=== PATIENT | female | born 1995 | race African-American/Black ===

== ENCOUNTER 2017-01-14 13:32 | Emergency (ER) | payer BC ==
[~2017-01-14] VITALS: Ht 167.6 cm; Wt 52.9 kg
[~2017-01-14 13:32] MED LIST: AMOXICILLIN500 M1 PO; NAPROSYN500 MG PO; NOHOMEMEDS; PERCOCET 5/31 TABLET PO; TESSALON PERLE100 MG PO; TORADOL10 MG PO; VALIUM5 MG PO; ZOFRAN4 MG PO
[2017-01-14 14:37] LABS: MCH 27.9 PG (29.0-34.0); MCHC 35.1 G/DL (30.0-36.0); MCV 79.4 FL (83-99); PLATELET COUNT 199 K/uL (156-360); RBC DIS.WIDTH-CV 13.4 % (11.8-14.6); RBC DIS.WIDTH-SD 37.9 % (39-53); RED BLOOD COUNT 4.91 M/uL (3.80-5.20); WHITE BLOOD COUNT 5.2 K/uL (4.1-10.2)
[2017-01-14 14:52] LABS: CHLORIDE 105 mEq/L (99-109); POTASSIUM 3.8 mEq/L (3.7-5.4); SODIUM 136 mEq/L (136-147)
[2017-01-14 14:54] LABS: GLUCOSE 94 mg/dL (70-99)
[2017-01-14 14:56] LABS: ANION GAP 8 MEQ/L (2-14)
[2017-01-14 14:58] LABS: GFR ESTIMATE (CALCULATED) > 59 mL/min/
[2017-01-14 14:59] LABS: UREA NITROGEN (BUN) 8 mg/dL (9-23)
[2017-01-14 15:06] LABS: QUANTITATIVE HCG < 4.0 MIU/ML
[2017-01-14 15:23] LABS: TOTAL BILIRUBIN 0.8 mg/dL (0.0-1.0)
[2017-01-14 15:24] LABS: ALKALINE PHOSPHATASE 53 IU/L (3-129)
[2017-01-14 15:26] LABS: DIRECT BILIRUBIN 0.3 mg/dL (0.0-0.3)
[2017-01-14 15:27] LABS: LIPASE 16 U/L (1.0-51.0)
[2017-01-14 16:18] LABS: INFLUENZA A VIRAL ANTIGEN POSITIVE; INFLUENZA B VIRAL ANTIGEN NEGATIVE
[2017-01-14] MEDS ORDERED: TAMIFLU75 MG PO (16:29)
[2017-01-14] MEDS ORDERED: MOTRIN600 MG PO (16:29)
[2017-01-14 16:56] VITALS: BP 114/55
== END 2017-01-14 16:57 | disposition home or self-care (01) ==
LOC: EME 13:32
PROVIDERS: Physician Assistant
DX: J10.1 Influenza due to other identified influenza virus with other respiratory manifestations (principal)
CPT/HCPCS: 71020; 80048; 80076; 83690; 84702; 85027; 87502; 99281; 99284

== ENCOUNTER 2018-03-31 17:35 | Emergency (ER) | payer BC ==
[~2018-03-31] VITALS: Ht 167.6 cm; Wt 51.9 kg
[~2018-03-31 17:35] MED LIST changes: +MOTRIN600 MG PO; +TAMIFLU75 MG PO
[2018-03-31 18:13] LABS: HEMATOCRIT 39.8 % (36.0-46.0); HEMOGLOBIN 13.5 G/DL (11.9-15.5); MCH 28.4 PG (29.0-34.0); MCHC 33.9 G/DL (30.0-36.0); MCV 83.6 FL (83-99); PLATELET COUNT 266 K/uL (156-360); RBC DIS.WIDTH-CV 12.8 % (11.8-14.6); RBC DIS.WIDTH-SD 39.2 % (39-53); RED BLOOD COUNT 4.76 M/uL (3.80-5.20); WHITE BLOOD COUNT 7.1 K/uL (4.1-10.2)
[2018-03-31 18:29] LABS: CHLORIDE 102 mEq/L (99-109); POTASSIUM 4.6 mEq/L (3.7-5.4); SODIUM 138 mEq/L (136-147)
[2018-03-31 18:31] LABS: GLUCOSE 101 mg/dL (70-99)
[2018-03-31 18:35] LABS: CREATININE 0.9 mg/dL (0.6-1.3); GFR ESTIMATE (CALCULATED) > 59 mL/min/
[2018-03-31 18:36] LABS: UREA NITROGEN (BUN) 11 mg/dL (9-23)
[2018-03-31 18:37] LABS: TROP-I INTERPRETATION NEGATIVE; TROPONIN-I < 0.01 ng/mL (0.0-0.30)
[2018-03-31 20:00] LABS: QUANTITATIVE HCG < 4.0 MIU/ML
[2018-03-31 22:06] LABS: TROP-I INTERPRETATION NEGATIVE; TROPONIN-I < 0.01 ng/mL (0.0-0.30)
[2018-03-31 22:34] VITALS: BP 132/68
== END 2018-03-31 22:35 | disposition home or self-care (01) ==
LOC: EME 17:35
PROVIDERS: Physician Assistant
DX: R07.9 Chest pain, unspecified (principal); R00.2 Palpitations
CPT/HCPCS: 71046; 80048; 84484; 84702; 85027; 93005; 99281; 99284

== ENCOUNTER 2018-06-06 16:48 | Emergency (ER) | payer BC ==
[~2018-06-06] VITALS: Ht 162.6 cm; Wt 52.0 kg
[2018-06-06 17:47] LABS: HEMATOCRIT 35.7 % (36.0-46.0); HEMOGLOBIN 12.6 G/DL (11.9-15.5); MCH 28.3 PG (29.0-34.0); MCHC 35.3 G/DL (30.0-36.0); MCV 80.2 FL (83-99); PLATELET COUNT 259 K/uL (156-360); RBC DIS.WIDTH-CV 12.3 % (11.8-14.6); RBC DIS.WIDTH-SD 35.8 % (39-53); RED BLOOD COUNT 4.45 M/uL (3.80-5.20); WHITE BLOOD COUNT 12.1 K/uL (4.1-10.2)
[2018-06-06 17:55] LABS: ALBUMIN 4.6 g/dL (3.2-4.8); CHLORIDE 105 mEq/L (99-109); POTASSIUM 3.5 mEq/L (3.7-5.4); SODIUM 138 mEq/L (136-147)
[2018-06-06 17:57] LABS: GLUCOSE 135 mg/dL (70-99)
[2018-06-06 17:59] LABS: TOTAL BILIRUBIN 0.6 mg/dL (0.0-1.0)
[2018-06-06 18:01] LABS: ALKALINE PHOSPHATASE 47 IU/L (3-129); CREATININE 0.9 mg/dL (0.6-1.3); GFR ESTIMATE (CALCULATED) > 59 mL/min/
[2018-06-06 18:02] LABS: UREA NITROGEN (BUN) 10 mg/dL (9-23)
[2018-06-06 18:03] LABS: AST (GOT) 22 IU/L (2-34)
[2018-06-06 18:04] LABS: ALT (GPT) 19 IU/L (3-49)
[2018-06-06 18:11] LABS: QUANTITATIVE HCG < 4.0 MIU/ML
[2018-06-06] MEDS ORDERED: BENTYL10 MG PO (19:36)
[2018-06-06] MEDS ORDERED: ZOFRAN ODT4 MG PO (19:36)
[2018-06-06 19:52] VITALS: BP 115/74
[2018-06-07] MEDS ORDERED: BENADRYL50 MG PO (14:05)
== END 2018-06-06 20:17 | disposition home or self-care (01) ==
LOC: EME 16:48
PROVIDERS: Nurse Practitioner Family
DX: N94.6 Dysmenorrhea, unspecified (principal); R10.30 Lower abdominal pain, unspecified; R11.2 Nausea with vomiting, unspecified; Z90.49 Acquired absence of other specified parts of digestive tract
CPT/HCPCS: 74177; 80053; 84702; 85027; 99281; 99284; J1630; J1885; J7030

== ENCOUNTER 2018-06-07 12:58 | Emergency (ER) | payer BC ==
[~2018-06-07] VITALS: Ht 165.1 cm; Wt 51.9 kg
[~2018-06-07 12:58] MED LIST changes: +BENTYL10 MG PO; +ZOFRAN ODT4 MG PO
[2018-06-07 13:57] LABS: HEMATOCRIT 35.3 % (36.0-46.0); HEMOGLOBIN 12.3 G/DL (11.9-15.5); MCH 28.3 PG (29.0-34.0); MCHC 34.8 G/DL (30.0-36.0); MCV 81.1 FL (83-99); PLATELET COUNT 232 K/uL (156-360); RBC DIS.WIDTH-CV 12.6 % (11.8-14.6); RBC DIS.WIDTH-SD 37.3 % (39-53); RED BLOOD COUNT 4.35 M/uL (3.80-5.20); WHITE BLOOD COUNT 8.6 K/uL (4.1-10.2)
[2018-06-07] MEDS ORDERED: BENADRYL50 MG PO (14:05)
[2018-06-07 14:09] LABS: CHLORIDE 107 mEq/L (99-109); POTASSIUM 3.6 mEq/L (3.7-5.4); SODIUM 142 mEq/L (136-147)
[2018-06-07 14:14] LABS: GLUCOSE 94 mg/dL (70-99)
[2018-06-07 14:15] LABS: CREATININE 0.9 mg/dL (0.6-1.3); GFR ESTIMATE (CALCULATED) > 59 mL/min/
[2018-06-07 14:16] LABS: UREA NITROGEN (BUN) 9 mg/dL (9-23)
[2018-06-07 14:17] LABS: CREATINE KINASE 111 IU/L (1-294)
[2018-06-07 14:46] VITALS: BP 105/65
== END 2018-06-07 14:48 | disposition home or self-care (01) ==
LOC: EME 12:58
PROVIDERS: Physician Assistant
DX: G24.09 Other drug induced dystonia (principal); T43.4X5A Adverse effect of butyrophenone and thiothixene neuroleptics, initial encounter; T39.8X5A Adverse effect of other nonopioid analgesics and antipyretics, not elsewhere classified, initial encounter
CPT/HCPCS: 80048; 82550; 85027; 99281; 99283; J1200